=== PATIENT | female | born 1995 | race Caucasian/White ===

== ENCOUNTER 2021-02-17 07:38 | Outpatient (CLI) | payer OTHER ==
[2021-02-17 22:44] LABS: SARS-CoV-2 PCR by NAA Not Detected (NotDetected)
== END 2021-02-17 07:39 | disposition home or self-care (01) ==
LOC: CSHLAB 07:38
PROVIDERS: ATTEND Family Medicine
DX: Z20.822 Contact with and (suspected) exposure to COVID-19 (principal)
CPT/HCPCS: U0003; U0005

== ENCOUNTER 2021-02-21 09:49 | Inpatient (IN) | payer OTHER ==
[2021-02-21] MEDS ORDERED: Ondansetron PF 4 MG/2 ML Vial IVP PRN ×3 (10:17→16:30)
[2021-02-21] MEDS ORDERED: CEFAZOLIN 2 GM in Premix Bag 1 BAG IVPB SCH (10:17)
[2021-02-21] MEDS ORDERED: Lactated Ringer's 1,000 ML IV SCH (10:17)
[2021-02-21] MEDS ORDERED: Bicitra 30 ML UDCUP PO PRN (10:17)
[2021-02-21] MEDS ORDERED: Promethazine HCl 25 MG/ML VIAL IM PRN ×3 (10:17→16:30)
[2021-02-21] MEDS ORDERED: Famotidine/PF 20 mg/2ml Vial SLOW IVP PRN (10:17)
[2021-02-21] MEDS ORDERED: hydrALAZINE 20 MG/ML VIAL SLOW IVP PRN ×2 (10:17→16:30)
[2021-02-21 11:29] VITALS: BMI 36.8
[2021-02-21 11:48] LABS: Hemoglobin 8.6 g/dL (12.0-15.5); Mean Corpuscular HGB CONC 31.2 g/dL (32.0-36.0); Mean Corpuscular Hemoglobin 24.7 pg (27.0-33.0); Mean Corpuscular Volume 79.3 fl (81.6-98.3); Mean Platelet Volume 9.3 fl (7.4-10.4); Platelet Count 386 10x3/uL (150-450); RBC Distribution Width 14.4 % (11.5-14.5); Red Blood Cell (RBC) Count 3.48 10x6/uL (3.90-5.03); White Blood Cell (WBC) Count 9.4 10x3/uL (3.5-10.5)
[2021-02-21] MEDS ORDERED: Ondansetron PF 4 MG/2 ML Vial ONE (11:49)
[2021-02-21] MEDS ORDERED: Dexamethasone 4 mg/ml Vial ONE (11:49)
[2021-02-21] MEDS ORDERED: Morphine PF 10 MG/10 ML VIAL ONE (11:49)
[2021-02-21] MEDS ORDERED: Oxytocin 10 UNITS/ML VIAL ONE (11:49)
[2021-02-21] MEDS ORDERED: Phenylephrine 10 MG/ML VIAL ONE (11:49)
[2021-02-21] MEDS ORDERED: Ketorolac Tromethamine 30 MG/ML VIAL ONE (11:49)
[2021-02-21 12:23] LABS: Hep B Surf Ag Non-Reactive S/CO (NonReactive)
[2021-02-21 12:24] LABS: Syphilis Antibody Nonreactive (Nonreactive); Syphilis Antibody Index 0.05 S/CO (<1.00 Non-Reactive)
[2021-02-21 12:31] LABS: HBSAg Index 0.17 S/CO (0-0.99)
[2021-02-21] MEDS ORDERED: Lidocaine 1% PF 10 ML AMP ONE (12:37)
[2021-02-21] MEDS ORDERED: Lidocaine 2% PF 100 mg/5 ml Syringe ONE (13:25)
[2021-02-21] MEDS ORDERED: Naloxone HCl 0.4 mg/ml Vial IV PRN (13:35)
[2021-02-21] MEDS ORDERED: Ondansetron HCl/PF 4 MG/2 ML Vial IVP PRN (13:35)
[2021-02-21] MEDS ORDERED: Naloxone HCl 0.4 mg/ml Vial IVP PRN ×2 (13:35)
[2021-02-21] MEDS ORDERED: Fentanyl 100 MCG/2 ML VIAL SLOW IVP PRN (13:35)
[2021-02-21] MEDS ORDERED: Ketorolac Tromethamine 30 MG/ML VIAL IVP PRN (13:35)
[2021-02-21] MEDS ORDERED: Hydrocerin (Eucerin) Cream 120 gm Jar TOP PRN (13:35)
[2021-02-21] MEDS ORDERED: Meperidine HCl/PF 25 MG/ML VIAL SLOW IVP PRN (13:35)
[2021-02-21] MEDS ORDERED: Promethazine HCl 25 MG SUPP PR PRN (13:35)
[2021-02-21] MEDS ORDERED: diphenhydrAMINE 50 MG/ML VIAL IVP PRN (13:35)
[2021-02-21] MEDS ORDERED: Communication Order-Pharmacy FS SCH (13:45)
[2021-02-21] MEDS ORDERED: Ketorolac Tromethamine 30 MG/ML VIAL IVP SCH (13:45)
[2021-02-21] MEDS ORDERED: Meperidine HCl/PF 25 MG/ML VIAL ONE (15:38)
[2021-02-21] MEDS ORDERED: diphenhydrAMINE 25 MG CAP PO PRN (16:30)
[2021-02-21] MEDS ORDERED: Boostrix 0.5 ML (Tdap) VIAL IM ONE (16:30)
[2021-02-21] MEDS ORDERED: Lanolin Ointment 7 GM TUBE TOP PRN (16:30)
[2021-02-21] MEDS ORDERED: Bisacodyl 10 MG SUPP PR PRN (16:30)
[2021-02-21] MEDS ORDERED: NS w/ Oxytocin 30 units 500 ML IV SCH (16:30)
[2021-02-21] MEDS ORDERED: Meperidine HCl/PF 25 MG/ML VIAL IM PRN (16:30)
[2021-02-21] MEDS: Ketorolac Tromethamine 30 MG/ML VIAL IVP SCH (19:27)
[2021-02-21] MEDS: Docusate 100 MG CAP PO SCH (21:32)
[2021-02-21] MEDS: Ferrous Sulfate 325 MG TAB PO SCH (21:32)
[2021-02-22] MEDS: Ketorolac Tromethamine 30 MG/ML VIAL IVP SCH ×2 (04:22→04:30)
[2021-02-22 05:16] LABS: Hemoglobin 7.3 g/dL (12.0-15.5); Mean Corpuscular HGB CONC 31.2 g/dL (32.0-36.0); Mean Corpuscular Hemoglobin 24.7 pg (27.0-33.0); Mean Corpuscular Volume 79.3 fl (81.6-98.3); Mean Platelet Volume 9.3 fl (7.4-10.4); Platelet Count 364 10x3/uL (150-450); RBC Distribution Width 14.2 % (11.5-14.5); Red Blood Cell (RBC) Count 2.95 10x6/uL (3.90-5.03); White Blood Cell (WBC) Count 12.4 10x3/uL (3.5-10.5)
[2021-02-22] MEDS: Docusate 100 MG CAP PO SCH ×2 (08:32→22:03)
[2021-02-22] MEDS: Ferrous Sulfate 325 MG TAB PO SCH ×2 (08:32→22:03)
[2021-02-22] MEDS: Prenatal Vitamin 1 TAB PO SCH (08:33)
[2021-02-22] MEDS: HYDROcodone/Acetaminophen 5/325 mg Tablet PO PRN ×3 (08:41→20:35)
[2021-02-22] MEDS: Ibuprofen 800 MG TAB PO SCH ×2 (13:15→22:04)
[2021-02-22] MEDS: Simethicone Chewable 80 MG TAB PO PRN (20:35)
[2021-02-23] MEDS: Simethicone Chewable 80 MG TAB PO PRN (05:21)
[2021-02-23] MEDS: Ibuprofen 800 MG TAB PO SCH ×2 (05:21→15:01)
[2021-02-23] MEDS: HYDROcodone/Acetaminophen 5/325 mg Tablet PO PRN ×3 (05:21→15:55)
[2021-02-23] MEDS: Ferrous Sulfate 325 MG TAB PO SCH (08:02)
[2021-02-23] MEDS: Docusate 100 MG CAP PO SCH (08:02)
[2021-02-23] MEDS: Prenatal Vitamin 1 TAB PO SCH (08:24)
[2021-02-23 12:50] VITALS: BP 110/59; TEMP 98.4
== END 2021-02-23 16:45 | disposition home or self-care (01) | DRG 788 ==
LOC: CSHLD 09:49 → CSHPP 16:10
PROVIDERS: ADMIT Family Medicine; ATTEND Family Medicine
PROC: 10D00Z1 Extraction of Products of Conception, Low, Open Approach (ICD-10-PCS; principal; 2021-02-21)
DX: O34.211 Maternal care for low transverse scar from previous cesarean delivery (principal); Z3A.39 39 weeks gestation of pregnancy; Z37.0 Single live birth; Z20.822 Contact with and (suspected) exposure to COVID-19
CPT/HCPCS: 36415; 51702; 85027; 85461; 86780; 86850; 86900; 86901; 87340; 90384; 96372; J0690; J1100; J1885; J2001; J2175; J2274; J2370; J2405; J2590